=== PATIENT | male | born 1980 | race African-American/Black ===

== ENCOUNTER 2016-04-11 19:16 | Emergency (ER) | payer SELFPAY ==
[~2016-04-11] VITALS: Ht 170.2 cm; Wt 71.4 kg
[~2016-04-11 19:16] MED LIST: FLEXERIL 1010 MG/TAB PO; MOTRIN 400400 MG/TAB PO; NO HOME MEDICATIONS; NORCO 325 MG-51 TAB PO; ZOFRAN 4MG T4 MG/TAB PO
[2016-04-11 19:24] VITALS: TEMP 98.8
[2016-04-11 21:00] VITALS: BP 127/76; PULSE 92
== END 2016-04-11 21:05 | disposition home or self-care (01) ==
LOC: COL.ER 19:16
DX: S82.832A Other fracture of upper and lower end of left fibula, initial encounter for closed fracture (principal); W03.XXXA Other fall on same level due to collision with another person, initial encounter; Y93.67 Activity, basketball; Y92.009 Unspecified place in unspecified non-institutional (private) residence as the place of occurrence of the external cause

== ENCOUNTER 2016-06-03 10:07 | Outpatient (RCR) | payer SELFPAY | END 2016-09-01 | disposition home or self-care (01) | LOC: MKS.ESL.PT | DX: Z47.89 Encounter for other orthopedic aftercare (principal); S99.812D Other specified injuries of left ankle, subsequent encounter; X58.XXXD Exposure to other specified factors, subsequent encounter ==